=== PATIENT | female | born 1995 | race Caucasian/White ===

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

== ENCOUNTER 2017-11-09 22:12 | Outpatient (CLI) | payer MEDICAID ==
[~2017-11-09 22:12] MED LIST: MOTRIN 800800 MG/TAB PO; PERCOCET 325 MG1 TA2 PO; TYLENOL 325MG325 MG PO
[2017-11-09 22:35] VITALS: BP 110/63; PULSE 78; TEMP 98.1
[2017-11-09] MEDS ORDERED: SYNTHROID0.075 MG/T PO (23:08)
[2017-11-09] MEDS ORDERED: ZOLOFT 50MG50 MG PO (23:09)
[2017-11-09] MEDS ORDERED: PRENATAL1 TA7 PO (23:10)
[2017-11-09] MEDS ORDERED: DICLEGIS PO (23:10)
[2017-11-10 00:27] LABS: COLLECTION METHOD CLEAN CATCH
[2017-11-10 00:31] LABS: BASO % 0.2 % (0.0-2.0); EOS # 0.1 (0.0-0.7); EOS % 0.7 % (0-4.0); GRAN # 7.4 (1.4-6.5); GRAN % 70.9 % (42.2-75.2); LYMPH % 18.9 % (20.0-51.0); MEAN CELL VOLUME 94 fl (80.0-95.0); MEAN CORPUSCULAR HGB CONC 35 g/dl (33.0-37.0); MEAN PLATELET VOLUME 11.1 fl (7.4-10.4); MONO # 0.9 (0.1-0.6); MONO % 8.3 % (1.7-9.3); PLATELET COUNT 106 K/mm3 (130-400); RED BLOOD COUNT 3.23 M/mm3 (4.10-5.30); REDCELL DISTRIBUTION WIDTH-CV 13.8 % (11.5-14.5)
[2017-11-10 00:34] LABS: HEMATOCRIT 30.4 % (35.0-45.0); HEMOGLOBIN 10.6 g/dl (12.0-15.0); MEAN CORPUSCULAR HEMOGLOBIN 33 pg (26.0-32.0)
[2017-11-10 00:39] LABS: AMORPHOUS CRYSTAL Present /uL; MUCOUS Present /lpf; PH 8 (5-8); SQUAMOUS EPITHELIAL 0-2 /hpf; URINE APPEARANCE Cloudy; URINE BACTERIA Rare /hpf; URINE BILIRUBIN Negative (NEGATIVE); URINE BLOOD Negative (NEGATIVE); URINE COLOR Yellow; URINE GLUCOSE Negative (NEGATIVE); URINE KETONE Negative (NEGATIVE); URINE LEUKOCYTE ESTERASE Trace (NEGATIVE); URINE NITRATE Negative (NEGATIVE); URINE PROTEIN(semi-quant) Negative (NEGATIVE); URINE RBC 0-2 /hpf
[2017-11-10 00:43] LABS: TRICYCLIC ANTIDEPRESS URINE NEGATIVE
[2017-11-10 00:45] VITALS: BP 109/55; PULSE 85
== END 2017-11-10 01:10 | disposition home or self-care (01) ==
LOC: LDRO 22:12
PROVIDERS: Student in an Organized Health Care Education/Training Program
DX: O62.9 Abnormality of forces of labor, unspecified (principal); Z3A.33 33 weeks gestation of pregnancy
CPT/HCPCS: J0702; J3105; J7120

== ENCOUNTER 2017-11-11 00:01 | Outpatient (CLI) | payer MEDICAID ==
[2017-11-11] VITALS (14 sets, daily range): BP systolic 89–125; BP diastolic 42–69; PULSE 66–76; TEMP 97.9–98.7
[~2017-11-11] VITALS: Ht 175.3 cm; Wt 68.2 kg
[~2017-11-11 00:01] MED LIST changes: +DICLEGIS PO; +PRENATAL1 TA7 PO; +SYNTHROID0.075 MG/T PO; +ZOLOFT 50MG50 MG PO
[2017-11-11 05:34] LABS: BASO % 0.1 % (0.0-2.0); EOS % 0.1 % (0-4.0); GRAN # 13.1 (1.4-6.5); GRAN % 89.5 % (42.2-75.2); LYMPH # 0.8 (1.2-3.4); LYMPH % 5.3 % (20.0-51.0); MEAN CELL VOLUME 97 fl (80.0-95.0); MEAN CORPUSCULAR HGB CONC 34 g/dl (33.0-37.0); MONO # 0.5 (0.1-0.6); MONO % 3.7 % (1.7-9.3); PLATELET COUNT 125 K/mm3 (130-400); RED BLOOD COUNT 3.18 M/mm3 (4.10-5.30); REDCELL DISTRIBUTION WIDTH-CV 14.1 % (11.5-14.5)
[2017-11-11 05:53] LABS: HEMATOCRIT 30.8 % (35.0-45.0); HEMOGLOBIN 10.6 g/dl (12.0-15.0); MEAN CORPUSCULAR HEMOGLOBIN 33 pg (26.0-32.0)
[2017-11-11 05:54] LABS: ALBUMIN 3.2 gm/dL (3.5-5.0); CALCIUM 8.4 mg/dL (8.4-10.2); CREATININE, serum 0.44 mg/dL (0.52-1.25); POTASSIUM 3.5 mmol/L (3.4-5.0); TOTAL PROTEIN 6.6 gm/dL (6.4-8.2)
[2017-11-11 08:41] LABS: HIV 1/2 Antibodies Non-Reactive; HIV-1p24 Antigen Non-Reactive
[2017-11-11 08:54] LABS: COLLECTION METHOD CLEAN CATCH
[2017-11-11 09:02] LABS: MUCOUS Present /lpf; PH 6 (5-8); URINE APPEARANCE Hazy; URINE BACTERIA None Seen /hpf; URINE BILIRUBIN Negative (NEGATIVE); URINE BLOOD 1+ (NEGATIVE); URINE COLOR Yellow; URINE GLUCOSE Negative (NEGATIVE); URINE KETONE 2+ (NEGATIVE); URINE LEUKOCYTE ESTERASE 3+ (NEGATIVE); URINE NITRATE Negative (NEGATIVE); URINE PROTEIN(semi-quant) Negative (NEGATIVE); URINE RBC 0-2 /hpf; URINE UROBILINOGEN Negative (NEGATIVE)
[2017-11-11 09:23] LABS: TRICYCLIC ANTIDEPRESS URINE NEGATIVE
[2017-11-11 14:25] LABS: HEPATITIS B SURFACE ANTIGEN Negative (())
[2017-11-12 00:12] LABS: RPR (VDRL) Non-reactive (())
== END 2017-11-11 09:00 | disposition home or self-care (01) ==
LOC: LDRO 00:01
PROVIDERS: Obstetrics & Gynecology
DX: O62.2 Other uterine inertia (principal); Z3A.33 33 weeks gestation of pregnancy
CPT/HCPCS: J0702; J2405; J7120

== ENCOUNTER 2017-11-15 07:06 | Observation (INO) | payer MEDICAID ==
[~2017-11-15] VITALS: Ht 175.3 cm; Wt 77.3 kg
[2017-11-15] VITALS (15 sets, daily range): BP systolic 94–119; BP diastolic 59–76; PULSE 60–111; TEMP 97.4–98.3
[2017-11-15 08:44] LABS: HEMATOCRIT 29.4 % (35.0-45.0); MEAN CELL VOLUME 95 fl (80.0-95.0); MEAN CORPUSCULAR HEMOGLOBIN 32 pg (26.0-32.0); MEAN CORPUSCULAR HGB CONC 34 g/dl (33.0-37.0); MEAN PLATELET VOLUME 11.5 fl (7.4-10.4); PLATELET COUNT 126 K/mm3 (130-400); RED BLOOD COUNT 3.09 M/mm3 (4.10-5.30); REDCELL DISTRIBUTION WIDTH-CV 14.2 % (11.5-14.5)
[2017-11-15 08:57] LABS: BAND 10 % (0-10); EOSINOPHIL 1 % (0-4); LYMPHOCYTE 18 % (20.0-51.0); NEUTROPHILS 65 % (42.0-75.2)
[2017-11-15 08:58] LABS: PLATELET ESTIMATE DECREASED (NORMAL)
[2017-11-15 09:00] LABS: TRICYCLIC ANTIDEPRESS URINE NEGATIVE
[2017-11-15 13:12] LABS: MEAN CELL VOLUME 98 fl (80.0-95.0); MEAN CORPUSCULAR HGB CONC 34 g/dl (33.0-37.0); MEAN PLATELET VOLUME 10.9 fl (7.4-10.4); PLATELET COUNT 116 K/mm3 (130-400); RED BLOOD COUNT 2.68 M/mm3 (4.10-5.30); REDCELL DISTRIBUTION WIDTH-CV 14.2 % (11.5-14.5)
[2017-11-15 13:15] LABS: HEMATOCRIT 26.2 % (35.0-45.0); HEMOGLOBIN 8.9 g/dl (12.0-15.0); MEAN CORPUSCULAR HEMOGLOBIN 33 pg (26.0-32.0)
[2017-11-15 13:25] LABS: BAND 12 % (0-10); LYMPHOCYTE 13 % (20.0-51.0); METAMYELOCYTE 1 % (0-0); NEUTROPHILS 65 % (42.0-75.2); PLATELET ESTIMATE DECREASED (NORMAL)
[2017-11-15 17:43] LABS: THYROID STIMULATING HORMONE 3.17 uIU/mL (0.465-4.680)
[2017-11-15 17:54] LABS: ALBUMIN 2.5 gm/dL (3.5-5.0); BILIRUBIN,TOTAL 0.4 mg/dL (0.0-1.0); CREATININE, serum 0.54 mg/dL (0.52-1.25); POTASSIUM 3.4 mmol/L (3.4-5.0); TOTAL PROTEIN 5.3 gm/dL (6.4-8.2)
[2017-11-16 01:00] VITALS: BP 99/51; PULSE 87
[2017-11-16 08:00] VITALS: BP 110/62; PULSE 78
[2017-11-16 13:03] VITALS: BP 99/55; PULSE 78; TEMP 97.4
[2017-11-16 16:40] LABS: HEMATOCRIT 26.2 % (35.0-45.0)
[2017-11-16 17:00] VITALS: BP 112/77; PULSE 95
[2017-11-16 20:20] VITALS: BP 111/68; PULSE 83; TEMP 98.5
[2017-11-17 08:36] VITALS: BP 110/67; PULSE 62
== END 2017-11-17 14:40 ==
LOC: LDRO 07:06 → LDR 07:10 → LDRO 08:48 → OB 08:49 → LDR 08:49 → OB 09:00
PROVIDERS: Obstetrics & Gynecology
DX: O71.4 Obstetric high vaginal laceration alone (principal); O99.343 Other mental disorders complicating pregnancy, third trimester; F20.9 Schizophrenia, unspecified; F90.9 Attention-deficit hyperactivity disorder, unspecified type; F32.9 Major depressive disorder, single episode, unspecified; O99.283 Endocrine, nutritional and metabolic diseases complicating pregnancy, third trimester; E03.9 Hypothyroidism, unspecified; O99.013 Anemia complicating pregnancy, third trimester; Z3A.32 32 weeks gestation of pregnancy
CPT/HCPCS: G0378; J0690; J2704; J3010

== ENCOUNTER 2017-11-30 15:49 | Inpatient (IN) | payer MEDICAID ==
[~2017-11-30] VITALS: Ht 175.3 cm; Wt 80.9 kg
[2017-11-30] VITALS (27 sets, daily range): BP systolic 89–126; BP diastolic 5–78; PULSE 60–78; TEMP 98.3–98.5
[2017-11-30] MEDS ORDERED: LATUDA20 MG PO (16:00)
[2017-11-30 17:39] LABS: BASO % 0.3 % (0.0-2.0); EOS # 0.1 (0.0-0.7); EOS % 0.5 % (0-4.0); GRAN % 72.8 % (42.2-75.2); LYMPH # 1.7 (1.2-3.4); LYMPH % 17.3 % (20.0-51.0); MEAN CELL VOLUME 96 fl (80.0-95.0); MEAN CORPUSCULAR HGB CONC 34 g/dl (33.0-37.0); MEAN PLATELET VOLUME 11.2 fl (7.4-10.4); MONO # 0.8 (0.1-0.6); MONO % 8.4 % (1.7-9.3); PLATELET COUNT 114 K/mm3 (130-400); RED BLOOD COUNT 2.95 M/mm3 (4.10-5.30); REDCELL DISTRIBUTION WIDTH-CV 14.5 % (11.5-14.5)
[2017-11-30 17:40] LABS: HEMATOCRIT 28.3 % (35.0-45.0); HEMOGLOBIN 9.6 g/dl (12.0-15.0); MEAN CORPUSCULAR HEMOGLOBIN 33 pg (26.0-32.0)
[2017-11-30 17:51] LABS: ALBUMIN 3.1 gm/dL (3.5-5.0); BILIRUBIN,TOTAL 1.1 mg/dL (0.0-1.0); CALCIUM 8.6 mg/dL (8.4-10.2); CREATININE, serum 0.47 mg/dL (0.52-1.25); POTASSIUM 3.8 mmol/L (3.4-5.0); TOTAL PROTEIN 6.3 gm/dL (6.4-8.2)
[2017-11-30] MEDS ORDERED: MOTRIN 800800 MG/TAB PO (18:20)
[2017-11-30] MEDS ORDERED: PERCOCET 325 MG1 TA2 PO (18:20)
[2017-11-30 19:33] LABS: TRICYCLIC ANTIDEPRESS URINE NEGATIVE
[2017-12-01] VITALS (23 sets, daily range): BP systolic 100–165; BP diastolic 45–77; PULSE 60–80; TEMP 97.9–98.5
[2017-12-02 07:30] VITALS: BP 127/79; PULSE 64; TEMP 98.5
[2017-12-02 16:05] VITALS: BP 109/70; PULSE 75; TEMP 97.7
[2017-12-02 19:30] VITALS: BP 115/64; PULSE 64; TEMP 97.7
[2017-12-03 08:10] VITALS: BP 111/53; PULSE 60; TEMP 98.4
== END 2017-12-03 11:50 | disposition home or self-care (01) | DRG 775 ==
LOC: LDRO 15:49 → LDR 17:15 → OB 17:15
PROVIDERS: Obstetrics & Gynecology
PROC: 10E0XZZ Delivery of Products of Conception, External Approach (ICD-10-PCS; principal; 2017-12-01)
PROC: 0UQMXZZ Repair Vulva, External Approach (ICD-10-PCS; 2017-12-01)
DX: O42.013 Preterm premature rupture of membranes, onset of labor within 24 hours of rupture, third trimester (principal); O60.14X0 Preterm labor third trimester with preterm delivery third trimester, not applicable or unspecified; Z3A.36 36 weeks gestation of pregnancy; Z37.0 Single live birth; O71.82 Other specified trauma to perineum and vulva; O99.344 Other mental disorders complicating childbirth; F32.89 Other specified depressive episodes; F12.10 Cannabis abuse, uncomplicated; O99.284 Endocrine, nutritional and metabolic diseases complicating childbirth; E03.9 Hypothyroidism, unspecified; Z22.330 Carrier of Group B streptococcus
CPT/HCPCS: J1200; J2540; J2590; J7120

== ENCOUNTER 2018-10-12 04:44 | Outpatient (CLI) | payer BC ==
[~2018-10-12 04:44] MED LIST changes: +LATUDA20 MG PO
--- NOTE | 2018-10-12 04:45 | NUR ---
HERE WITH SPOUSE FOR LABOR CHECK. STATES CTXS STARTED LAST NITE 2300 AND NOW ARE STRONGER AND IS LEAKING CLEAR FLUID. NO FLUID NOTED ON EXAM NITAZINE NEG. 2/80/-2 . Q 2 MIN MILD CTXS.LIMITED CARE- LAST VISIT IN MAY 2018 IN [place] [facility]. PERMISSION OBTAINED OT [facility] RECORDS WHEN CLINIC OPENS. DR STEIN REPORTED TO. HAD LAST 2 BABIES IN [place] 2YO AND [address] MALDONADO. SPOUSE ANSWERS QUESTIONS FOR CIARRA , SHE IS VERY QUIET. HAS NOT TAKEN SYNTHROID FOR 4-5 DAYS , SAYS SHE IS OUT.RECENTLY MOVED HERE FROM [place] AND HAS NOT MADE APPT TO BE SEEN AT [facility]. 0520 UP WITH AYLIN PAD TO WALK PER ORDER.
[2018-10-12 05:00] VITALS: BP 117/73; PULSE 68; TEMP 98.2
[2018-10-12] MEDS ORDERED: ZOLOFT 100MG100 MG PO (05:44)
[2018-10-12 06:12] VITALS: BP 117/73; PULSE 60; TEMP 97.8
--- NOTE | 2018-10-12 06:26 | NUR ---
AFTER WALKING APPROX 45 MIN NO LEAKING OF FLUID VAGINALLY NOTED. SVE CX UNCHANGED. REPORT TO HUI HIRSCH. WILL NOTIFY Nicola RIVAS AT [address] STEIN. PLAN OF CARE DISCUSSED WITH PT AND SPOUSE
== END 2018-10-12 07:20 | disposition home or self-care (01) ==
LOC: LDRO 04:44
DX: O26.893 Other specified pregnancy related conditions, third trimester (principal); R25.2 Cramp and spasm; Z3A.38 38 weeks gestation of pregnancy

== ENCOUNTER 2018-10-14 09:08 | Inpatient (IN) | payer BC ==
[2018-10-14] VITALS (38 sets, daily range): BP systolic 103–130; BP diastolic 53–84; PULSE 58–88; TEMP 97.3–98.7
[~2018-10-14] VITALS: Ht 175.3 cm; Wt 78.2 kg
[~2018-10-14 09:08] MED LIST changes: +ZOLOFT 100MG100 MG PO
--- NOTE | 2018-10-14 09:15 | NUR ---
0915-G3L2 38.2 WEEK PATIENT AND SPOUSE AND 2 YOUNG CHILDREN AMBULATORY TO LR 5 WITH COMPLAINTS OF CONTRACTIONS STARTING AT 0700. WAS PREVIOUSLY SEEN ON THIS UNIT TWO DAYS PRIOR AND SENT HOME WITH NO CHANGE IN CERVIX. AT THAT TIME WAS -2. ASSISTED INTO GOWN AND PLACED ON EFM. REACTIVE FHR. AMNITEST NEG, SVE 3-/-2. ASSESSMENT COMPLETE. PATIENT WITH SIGNIFICANT PSYCHIATRIC HISTORY. WAS TRANSFERED IN LAST TO IN PSYCH FOR INCIDENT INVOLVING VAGINAL LACERATION. 0938-DR. LOUIS UPDATED, SEE PHYSICIAN NOTIFICATION. 1017-SVE --2 1025-DR. LOUIS UPDATED, SEE PHYSICIAN NOTIFICATION. ORDERS TO ADMIT PATIENT. 1058-IV TO LEFT FOREARM, LR INFUSING PER ORDERS AND PROTOCOL. PEN G PER GBS UNKNOWN PROTOCOL AND ORDERS. PATIENT REQUESTS EPIDURAL. TRACY PEARSON NOTIFIED. DR. LOUIS ON UNIT. REVIEWS EFM AND RECORDS. 1113-SVE BY , AROM CLEAR FLUID NOTED. AYLIN CARE PROVIDED. 1122-TRACY PEARSON TO PATIENT ROOM.
[2018-10-14 10:13] LABS: COLLECTION METHOD CATHETER
[2018-10-14 10:14] LABS: BASO % 0.3 % (0.0-2.0); EOS # 0.1 (0.0-0.7); EOS % 0.6 % (0-4.0); GRAN # 8.8 (1.4-6.5); GRAN % 69.9 % (42.2-75.2); LYMPH # 2.4 (1.2-3.4); LYMPH % 19.4 % (20.0-51.0); MEAN CELL VOLUME 95 fl (80.0-100.0); MEAN CORPUSCULAR HGB CONC 33 g/dl (33.0-37.0); MEAN PLATELET VOLUME 10.9 fl (7.4-10.4); MONO # 1.1 (0.1-0.6); MONO % 8.9 % (1.7-9.3); PLATELET COUNT 189 K/mm3 (130-400); REDCELL DISTRIBUTION WIDTH-CV 12.4 % (11.5-14.5)
[2018-10-14 10:20] LABS: PH 7 (5-8); SQUAMOUS EPITHELIAL 0-2 /hpf; URINE APPEARANCE Clear; URINE BACTERIA None Seen /hpf; URINE BILIRUBIN Negative (NEGATIVE); URINE BLOOD Negative (NEGATIVE); URINE COLOR Straw; URINE GLUCOSE Negative (NEGATIVE); URINE KETONE Negative (NEGATIVE); URINE LEUKOCYTE ESTERASE Negative (NEGATIVE); URINE NITRATE Negative (NEGATIVE); URINE PROTEIN(semi-quant) Negative (NEGATIVE); URINE RBC None Seen /hpf; URINE UROBILINOGEN Negative (NEGATIVE); URINE WBC 0-2 /hpf
[2018-10-14 10:21] LABS: HEMATOCRIT 30.3 % (37.0-47.0); HEMOGLOBIN 9.9 g/dl (12.5-16.0); MEAN CORPUSCULAR HEMOGLOBIN 31 pg (27.0-31.0)
[2018-10-14 10:33] LABS: TRICYCLIC ANTIDEPRESS URINE NEGATIVE
[2018-10-14 11:08] LABS: HIV 1/2 Antibodies Non-Reactive; HIV-1p24 Antigen Non-Reactive
--- NOTE | 2018-10-14 11:23 | NUR ---
1123-PATIENT SITTING UPRIGHT ON BEDSIDE FOR EPIDURAL PLACEMENT. 1129-SS ADMINISTERED BY TRACY PEARSON PATIENT DENIES SYMPTOMS OF REACTION OR SIDE EFFECTS. 1134-REPOSITIONED WL. 1205-PAREKH TO DD, CLEAR YELLOW URINE RETURN, SVE /-2, AYLIN CARE PROVIDED. REPOSITIONED WR. 1230-PATIENT REPORTS NAUSEA. VSS SEE FLOW RECORD. 4MG IV ZOFRAN GIVEN SEE EMAR.
--- NOTE | 2018-10-14 13:45 | NUR ---
Dr. Smith's office notified of psych consult order. Office unable to follow through with consult due to provider not university relations vice president for services until Wednesday. Will notify
--- NOTE | 2018-10-14 14:20 | NUR ---
PATIENT REPORTS PRESSURE SVE /-2, REPOSITIONED WR WITH PEANUT BALL.
--- NOTE | 2018-10-14 14:52 | NUR ---
1452-Pitocin started at 2mu/min per MD order and protocol.
--- NOTE | 2018-10-14 19:02 | NUR ---
1857 - Pt educated on pushing techniques. Positioned into footplates. Initial push at this time. 1858 - Pt pushing well. Dr. Plaza gowned and gloved at perineum. 1901 - Pt pushed to deliver a viable infant girl. Baby placed on mothers abdomen, care of assumed to Nursery RN JOYCELYN Morataya. Cord clamped and cut by Dr. Plaza. Cord blood obtained. Pitocin off. Epidural off and pump removed by Jeffery. 1906 - Spontaneous delivery of placenta. Repair of R labial laceration. Dr. Plaza examining for leftover membranes in uterus. 1910 - All membranes removed. Pitocin restarted at 333 mL/hr per protocol. Fundal massage started by this RN, fundus firm and down 2 from umbilicus. 1914 - Pericare provided. Ice pack applied to perineum. Pt repositioned in bed to high fowlers. recovery started.
--- NOTE | 2018-10-14 22:50 | NUR ---
Pt up to the bathroom with assistance of significant other without requesting help freelance translator present. Pt able to void adequate amount of urine but not measured. Megan-care done. Assisted pt to the wheelchair for transfer to room 208. Oriented to room, bed and call light within reach. Instructed pt to call for assistance. Plan of care reviewed.
[2018-10-14 23:28] LABS: HEPATITIS B SURFACE ANTIGEN Negative (Negative)
[2018-10-15 03:00] VITALS: BP 109/77; PULSE 65; TEMP 97.5
[2018-10-15 07:21] VITALS: BP 110/64; PULSE 75; TEMP 97.7
[2018-10-15 16:05] VITALS: BP 122/70; PULSE 60; TEMP 97.9
[2018-10-15 20:00] VITALS: BP 129/76; PULSE 70; TEMP 98.7
[2018-10-16 07:15] VITALS: BP 116/81; PULSE 56; TEMP 98.1
[2018-10-16] MEDS ORDERED: PERCOCET 325 MG1 TA2 PO (09:28)
[2018-10-16] MEDS ORDERED: IBU600 MG PO (09:28)
[2018-10-16] MEDS ORDERED: ZOLOFT 100MG100 MG PO (09:29)
[2018-10-16] MEDS ORDERED: SYNTHROID0.075 MG/T PO (09:30)
[2018-10-16 12:15] VITALS: BP 114/55; PULSE 79; TEMP 98.7
--- NOTE | 2018-10-16 13:49 | NUR ---
wharf worker met with patient and father of the baby (Baldemar Schroeder) to discuss the patient's medical/social history situation and positive urine test results for marijuana. Baby Radha was in the room and Baldemar was holding/nurturing the baby while patient rested. Patient did have a positive urinalysis result for use of marijuana which the patient said she used to reduce her nausea symptoms in the beginning of her . Patient's nurse (Amber) reported baby Radha tested negative for illecit drugs but the nursing staff has sent in the baby's cord blood for further testing and have not yet received results. Baldemar has a total of 6 children and his other 5 children are under the residential custody of his ex-significant other and reside in [place]. Patient has a total of 3 children and they all live with patient and Baldemar at their [place], [place] mobile trailer home. Patient is orignially from [place] and Baldemar is originally from [place] and they are contemplating moving back to [place] in the near future. Neither the patient or father of baby currently work and social work msw discussed local community resources including [facility], [facility], [employer], [facility] Services, [facility] [employer], [facility], and [facility], and provided the patient and Baldemar with a [facility] Parenting Resources Packet. Patient has a mental health history of Schizophrenia and Bi-Polar Disorder which the patient has medications for yet has been intermittently non-compliant with. Patient's nurse reported the patient is back on her Zoloft and thyroid medications for the time being. Patient did not receive medcial care in [place], [place] while she was and reported her children are currently under the pedicatric care of Dr. Saini. wharf worker contacted the [place] [employer] ( ) and made a report due to mother's positive urinalysis for marijuana and lack of care and the report case # is [id number]. Patient is scheduled to be screened by psych services before her discharge on 10/17/18. No further needs at this time.
[2018-10-16 16:28] VITALS: BP 105/53; PULSE 56; TEMP 98.3
[2018-10-16 18:07] LABS: RPR (VDRL) XXX
[2018-10-16 20:00] VITALS: BP 114/66; PULSE 79; TEMP 98.1
[2018-10-17 04:00] VITALS: BP 120/67; PULSE 63; TEMP 99
[2018-10-17 07:46] VITALS: BP 121/73; PULSE 50; TEMP 98
--- NOTE | 2018-10-17 08:15 | NUR ---
Dr Hinkle's office called and notified of pt here and consult placed last wednesday for pt's hx of mental health issues. Office staff notified this nurse that physician will see patients and does not start doing consults until 1500 today. 0840:Dr Gonzalez here and updated. Physician visits with pt and pt does not want to see Dr Hinkle, she has seen her in the past. Order to DC the psych consult and pt to receive resources for [facility]. Keara Healy, social worker delinquency prevention called and notified. She will come to unit at this time. 0900:Keara Healy here. Resources printed off and will make an outpatient appointment for patient to follow up. 1000:Dr Hinkle called this nurse and plant of care discussed. Physician unsure she can even see patient today and the earliest will be tomorrow. Physician recommended the best thing for the patient and her insurance would be to follow up at [facility] today or tomorrow. Will call and schedule appt.
[2018-10-17] MEDS ORDERED: SYNTHROID0.075 MG/T PO (08:35)
[2018-10-17] MEDS ORDERED: ZOLOFT 100MG100 MG PO (08:35)
--- NOTE | 2018-10-17 09:27 | NUR ---
cotton farmworker met with patient and father of the baby to inquire about insurance. Patient states she is on her mother's insurance and has [place]. Worker arranged for Mady with financial counseling to meet with patient, today, as she is not active under [place] insurance.
--- NOTE | 2018-10-17 09:50 | NUR ---
Mady, financial support here and at bedside. Visits with pt about getting [place] insurance reactivated. Pt states she called last .
--- NOTE | 2018-10-17 10:05 | NUR ---
Initial visit; Parents thanked [employer] for offering congratulations and God's blessings for the of their daughter. Oil [employer]er thanked them for choosing [facility].
--- NOTE | 2018-10-17 10:09 | NUR ---
[facility] called to request appointment time for patient. D/t patient not being seen in the last 6 months her account is inactive and she will need to come and have a new intake done. Hours and days of the week provided and this nurse to pass along info. After Intake then an appt with physician will be scheudled. 1030:Discharge instructions given, pt verbalizes understanding. Scripts given. Pt states she will go to [facility] Walk in clinic and do Intake. Bands matched and hugs tag removed. Carseat checked. 1035:Pt and family to personal vehicle.
== END 2018-10-17 10:35 | disposition home or self-care (01) | DRG 797 ==
LOC: LDRO 09:08 → LDR 09:15 → LDRO 09:16 → LDR 09:17 → OB 23:57
PROVIDERS: Obstetrics & Gynecology; ADMIT Obstetrics & Gynecology
PROC: 10E0XZZ Delivery of Products of Conception, External Approach (ICD-10-PCS; principal; 2018-10-14)
PROC: 10D17ZZ Extraction of Products of Conception, Retained, Via Natural or Artificial Opening (ICD-10-PCS; 2018-10-14)
PROC: 0UQMXZZ Repair Vulva, External Approach (ICD-10-PCS; 2018-10-14)
DX: O70.0 First degree perineal laceration during delivery (principal); O99.324 Drug use complicating childbirth; Z37.0 Single live birth; O69.81X0 Labor and delivery complicated by cord around neck, without compression, not applicable or unspecified; Z3A.38 38 weeks gestation of pregnancy; F31.9 Bipolar disorder, unspecified; O99.344 Other mental disorders complicating childbirth; F20.9 Schizophrenia, unspecified; O99.284 Endocrine, nutritional and metabolic diseases complicating childbirth; E03.9 Hypothyroidism, unspecified; F12.10 Cannabis abuse, uncomplicated; Z23 Encounter for immunization; O99.334 Smoking (tobacco) complicating childbirth; F17.210 Nicotine dependence, cigarettes, uncomplicated; Z91.14 Patient's other noncompliance with medication regimen; F90.9 Attention-deficit hyperactivity disorder, unspecified type
CPT/HCPCS: J2405; J2540; J2590; J2795; J7120